=== PATIENT | male | born 1995 | race Caucasian/White ===

== ENCOUNTER 2018-07-19 09:28 | Emergency (ER) | payer MEDICAID ==
[~2018-07-19] VITALS: Ht 177.8 cm; Wt 65.9 kg
[2018-07-19 10:57] LABS: BASOPHILS % (AUTO) 0.1 % (0-1); EOSINOPHILS # (AUTO) 0.1 X10'3 (0-0.9); EOSINOPHILS % (AUTO) 0.9 % (0-6); HEMATOCRIT 47.9 % (42.0-52.0); HEMOGLOBIN 16.5 g/dl (14.0-17.9); LYMPHOCYTES # (AUTO) 2.3 X10'3 (1.1-4.8); LYMPHOCYTES % (AUTO) 42.3 % (21-51); MEAN CORPUSCULAR HEMOGLOBIN 30.3 PG (27.0-31.0); MEAN CORPUSCULAR HGB CONC 34.5 % (33.0-36.5); MONOCYTES # (AUTO) 0.4 X10'3 (0-0.9); MONOCYTES % (AUTO) 7.9 % (2-12); NEUTROPHILS # (AUTO) 2.7 X10'3 (1.8-7.7); NEUTROPHILS % (AUTO) 48.8 % (42-75); PLATELET COUNT 216 X10'3 (140-440); RED BLOOD COUNT 5.45 X10'6 (4.70-6.10); RED CELL DISTRIBUTION WIDTH 13.1 % (11.5-14.5); WHITE BLOOD COUNT 5.5 X10'3 (4.5-11.0)
[2018-07-19] MEDS ORDERED: iohexol 300mg/ml 100ml inj. ONE (11:09)
[2018-07-19 11:11] LABS: ALANINE AMINOTRANSFERASE 20 U/L (12-78); ALBUMIN 4.2 G/DL (3.4-5.0); ALBUMIN/GLOBULIN RATIO 1.4 (1.1-1.5); ALKALINE PHOSPHATASE 62 IU/L (20-180); ANION GAP 13 (8-16); ASPARTATE AMINO TRANSFERASE 13 U/L (10-37); BILIRUBIN,TOTAL 0.6 MG/DL (0.1-1.0); BLOOD UREA NITROGEN 11 MG/DL (7-18); CHLORIDE 104 MMOL/L (99-107); GLUCOSE 88 MG/DL (70-104); LIPASE 120 U/L (73-393); POTASSIUM 3.5 MMOL/L (3.5-5.1); SODIUM 139 MMOL/L (135-145); TOTAL CARBON DIOXIDE 22.4 MMOL/L (24-32); TOTAL PROTEIN 7.1 G/DL (6.4-8.2); eGFR 85 ML/MIN
[2018-07-19 11:20] LABS: CALCIUM 9.4 MG/DL (8.5-10.1)
[2018-07-19 12:32] VITALS: BP 113/54
== END 2018-07-19 12:33 | disposition home or self-care (01) ==
LOC: ER 09:28
DX: S29.012A Strain of muscle and tendon of back wall of thorax, initial encounter (principal); M94.0 Chondrocostal junction syndrome [Tietze]; F17.200 Nicotine dependence, unspecified, uncomplicated; F12.10 Cannabis abuse, uncomplicated; V49.40XA Driver injured in collision with unspecified motor vehicles in traffic accident, initial encounter; Y93.89 Activity, other specified; Y92.488 Other paved roadways as the place of occurrence of the external cause; Y99.8 Other external cause status
CPT/HCPCS: 36415; 71046; 71260; 80053; 83690; 85025; 99285; Q9967; 93005

== ENCOUNTER 2019-03-28 14:59 | Emergency (ER) | payer MEDICAID ==
[~2019-03-28] VITALS: Ht 175.3 cm; Wt 63.6 kg
[2019-03-28 15:07] VITALS: BP 123/81
[2019-03-28] MEDS ORDERED: CLIN-96 PO (15:26)
--- NOTE | 2019-03-28 15:38 | NUR ---
Received DC papers and ABX script for pt DC.
== END 2019-03-28 15:40 | disposition home or self-care (01) ==
LOC: ER 14:59
DX: S02.5XXA Fracture of tooth (traumatic), initial encounter for closed fracture (principal); K02.9 Dental caries, unspecified; F12.90 Cannabis use, unspecified, uncomplicated; W22.8XXA Striking against or struck by other objects, initial encounter; Y93.89 Activity, other specified; Y92.89 Other specified places as the place of occurrence of the external cause; Y99.8 Other external cause status
CPT/HCPCS: 99283

== ENCOUNTER 2019-09-28 09:58 | Emergency (ER) | payer MEDICAID ==
[~2019-09-28] VITALS: Ht 175.3 cm; Wt 58.1 kg
[~2019-09-28 09:58] MED LIST: CLIN-96 PO
[2019-09-28] MEDS ORDERED: ketorolac tromethamine 15mg/ml inj. IM ONE (11:20)
[2019-09-28] MEDS ORDERED: orphenadrine citrate 60mg/2ml inj. IM ONE (11:20)
[2019-09-28] MEDS ORDERED: NAPR-56 PO (12:14)
[2019-09-28] MEDS ORDERED: METH-360 PO (12:14)
[2019-09-28 12:19] VITALS: BP 107/53
== END 2019-09-28 12:21 | disposition home or self-care (01) ==
LOC: ER 09:59
DX: S29.012A Strain of muscle and tendon of back wall of thorax, initial encounter (principal); F12.90 Cannabis use, unspecified, uncomplicated; Z79.899 Other long term (current) drug therapy; W17.89XA Other fall from one level to another, initial encounter; Y93.89 Activity, other specified; Y92.89 Other specified places as the place of occurrence of the external cause; Y99.8 Other external cause status
CPT/HCPCS: 72070; 96372; 99284; J1885; J2360

== ENCOUNTER 2020-01-14 08:14 | Emergency (ER) | payer MEDICAID ==
[~2020-01-14] VITALS: Ht 172.7 cm; Wt 64.0 kg
[~2020-01-14 08:14] MED LIST changes: +CLIN-90 PO; -CLIN-96 PO; +METH-360 PO
[2020-01-14] MEDS ORDERED: ondansetron/PF 4mg/2ml inj IV ONE (08:35)
[2020-01-14] MEDS ORDERED: normal saline 1000ML IV soln IVB ONE (08:35)
[2020-01-14] MEDS ORDERED: ONDA8TAB6 PO (08:37)
[2020-01-14 10:12] VITALS: BP 115/56
[2020-01-14 10:23] LABS: BASOPHILS % (AUTO) 0.3 % (0-1); EOSINOPHILS % (AUTO) 0.5 % (0-6); HEMATOCRIT 45.3 % (42.0-52.0); HEMOGLOBIN 15.5 g/dl (14.0-17.9); MEAN CORPUSCULAR HEMOGLOBIN 29.9 PG (27.0-31.0); MEAN CORPUSCULAR HGB CONC 34.2 g/dL (33.0-36.5); MEAN CORPUSCULAR VOLUME 87.5 FL (78-98); MEAN PLATELET VOLUME 7.2 FL (7.4-10.4); MONOCYTES # (AUTO) 0.7 X10'3 (0-0.9); MONOCYTES % (AUTO) 7.2 % (2-12); NEUTROPHILS # (AUTO) 6.6 X10'3 (1.8-7.7); PLATELET COUNT 222 X10'3 (140-440); RED BLOOD COUNT 5.18 X10'6 (4.70-6.10); RED CELL DISTRIBUTION WIDTH 13.3 % (11.5-14.5); WHITE BLOOD COUNT 9.3 X10'3 (4.5-11.0)
[2020-01-14 10:42] LABS: ALANINE AMINOTRANSFERASE 70 U/L (12-78); ALBUMIN 3.5 G/DL (3.4-5.0); ALBUMIN/GLOBULIN RATIO 1.3 (1.1-1.5); ALKALINE PHOSPHATASE 60 IU/L (46-116); ANION GAP 7 (8-16); ASPARTATE AMINO TRANSFERASE 35 U/L (10-37); BILIRUBIN,TOTAL 0.5 MG/DL (0.1-1.0); BLOOD UREA NITROGEN 14 MG/DL (7-18); BUN/CREATININE RATIO 15.9 (5.4-32.0); CALCIUM 8.3 MG/DL (8.5-10.1); CHLORIDE 108 MMOL/L (99-107); CREATININE 0.88 MG/DL (0.60-1.10); GLUCOSE 93 MG/DL (70-104); POTASSIUM 4.4 MMOL/L (3.5-5.1); SODIUM 142 MMOL/L (135-145); TOTAL CARBON DIOXIDE 27.5 MMOL/L (24-32); TOTAL PROTEIN 6.3 G/DL (6.4-8.2); eGFR > 90 ML/MIN
== END 2020-01-14 11:07 | disposition home or self-care (01) ==
LOC: ER 08:15
DX: R11.2 Nausea with vomiting, unspecified (principal); R19.7 Diarrhea, unspecified; R10.9 Unspecified abdominal pain; F12.90 Cannabis use, unspecified, uncomplicated
CPT/HCPCS: 36415; 80053; 85025; 96361; 96374; 99283; J2405; J7030